=== PATIENT | male | born 1990 | race African-American/Black ===

== ENCOUNTER 2021-08-31 21:01 | Emergency (ER) | payer SELFPAY | END 2021-08-31 22:13 | disposition left against medical advice (07) | LOC: ER 21:01 | DX: Z53.21 Procedure and treatment not carried out due to patient leaving prior to being seen by health care provider (principal) ==

== ENCOUNTER 2021-09-01 19:24 | Inpatient (IN) | payer SELFPAY ==
[~2021-09-01] VITALS: Ht 180.3 cm; Wt 88.0 kg
[2021-09-01] MEDS ORDERED: HYDROCODONE/ACETAMINOPHEN 10/325MG TABLET PO ONE (20:15)
[2021-09-01 20:37] LABS: BASOPHILS % 0.9 % (0.0-2.0); HEMATOCRIT. 27.8 % (42.0-52.0); HEMOGLOBIN. 9.4 g/dL (14.0-18.0); LYMPHOCYTES % 32.5 % (20.0-50.0); MEAN CORPUSCULAR HEMOGLOBIN 30.2 pg (28.0-32.0); MEAN CORPUSCULAR VOLUME 89.3 fL (80.0-94.0); MEAN PLATELET VOLUME 6.8 fl (7.4-10.4); MONOCYTES % 9.6 % (2.0-8.0); PLATELET 612 x1000/uL (130-400); RED BLOOD CELL COUNT 3.12 mill/uL (4.7-6.1); RED CELL DISTRIBUTION WIDTH 13.2 % (11.6-14.6)
[2021-09-01 20:42] LABS: CHLORIDE 112 mEq/L (98-107)
[2021-09-01] MEDS ORDERED: HYDROCODONE/ACETAMINOPHEN 5/325MG TABLET PO PRN (22:45)
[2021-09-01 23:00] VITALS: BP 108/70
[2021-09-02 01:00] VITALS: BP 108/70
[2021-09-02 04:00] VITALS: BP 111/63
[2021-09-02 07:03] VITALS: BP 111/63
[2021-09-02 07:19] LABS: BASOPHILS % 1.1 % (0.0-2.0); EOSINOPHILS % 4.8 % (0.0-5.0); HEMATOCRIT. 27.6 % (42.0-52.0); HEMOGLOBIN. 9.2 g/dL (14.0-18.0); MEAN CORPUSCULAR HEMOGLOBIN 30.2 pg (28.0-32.0); MEAN CORPUSCULAR VOLUME 90.5 fL (80.0-94.0); MONOCYTES % 9.1 % (2.0-8.0); PLATELET 604 x1000/uL (130-400); RED BLOOD CELL COUNT 3.04 mill/uL (4.7-6.1); RED CELL DISTRIBUTION WIDTH 13.4 % (11.6-14.6)
== END 2021-09-02 10:20 | disposition left against medical advice (07) | DRG 143 ==
LOC: ER 19:24 → 8WST 22:35 → ENRESERV 23:02
PROVIDERS: ADMIT Internal Medicine; ATTEND Internal Medicine
DX: J90 Pleural effusion, not elsewhere classified (principal); J96.00 Acute respiratory failure, unspecified whether with hypoxia or hypercapnia; J94.2 Hemothorax; D64.9 Anemia, unspecified; Z87.891 Personal history of nicotine dependence; Z53.29 Procedure and treatment not carried out because of patient's decision for other reasons
CPT/HCPCS: 36415; 71045; 80053; 85025; 93005; 99285

== ENCOUNTER 2024-02-21 20:01 | Emergency (ER) | payer MEDICAID ==
[~2024-02-21] VITALS: Ht 180.3 cm; Wt 88.0 kg
[2024-02-21 20:06] VITALS: TEMP 98.4; O2SAT 100
[2024-02-21 23:31] VITALS: BP 123/78; PULSE 96; RESP 16
[2024-02-21] MEDS: KETOROLAC 60MG/2ML VIAL IM ONE (23:31)
[2024-02-21] MEDS: DEXAMETHASONE 10 MG/ML VIAL PO ONE (23:32)
[2024-02-22] MEDS ORDERED: AMOX-494 MT (00:38)
[2024-02-22] MEDS: AMOXICILLIN 500 MG CAPSULE PO ONE (00:45)
== END 2024-02-22 01:39 | disposition home or self-care (01) ==
LOC: ER 20:01
DX: J02.9 Acute pharyngitis, unspecified (principal); J02.0 Streptococcal pharyngitis; M79.10 Myalgia, unspecified site
CPT/HCPCS: 99283; 96372; J1100; J1885

== ENCOUNTER 2024-10-15 19:48 | Emergency (ER) | payer MEDICAID ==
[~2024-10-15] VITALS: Ht 180.3 cm; Wt 87.0 kg
[~2024-10-15 19:48] MED LIST: AMOX-494 MT
[2024-10-15 20:24] VITALS: O2SAT 100
[2024-10-15] MEDS: CYCLOBENZAPRINE 10MG TABLET PO ONE (22:32)
[2024-10-15] MEDS ORDERED: CYCL10TA21 MT (22:38)
[2024-10-15] MEDS ORDERED: IBUP-2029 MT (22:38)
[2024-10-15 23:00] VITALS: BP 128/63; PULSE 90; RESP 18; TEMP 37.11408; O2SAT 100
== END 2024-10-15 23:01 | disposition home or self-care (01) ==
LOC: ER 19:48
DX: M25.572 Pain in left ankle and joints of left foot (principal); M25.571 Pain in right ankle and joints of right foot
CPT/HCPCS: 73600; 93970; 99284; Z7610